=== PATIENT | female | born 1970 | race Asian ===

== ENCOUNTER 2016-07-09 23:00 | Emergency (ER) | payer OTHER ==
[~2016-07-09] VITALS: Ht 167.6 cm; Wt 52.2 kg
[2016-07-10 00:27] LABS: HIV-1 P24 AG Nonreactive (Nonreactive)
[2016-07-10 00:30] VITALS: BP 101/52
[2016-07-10 23:08] LABS: HEPATITIS C VIRUS AB <0.1 (0.0-0.9)
== END 2016-07-10 00:30 | disposition home or self-care (01) ==
LOC: ER 23:00
PROVIDERS: Nurse Practitioner
DX: S69.81XA Other specified injuries of right wrist, hand and finger(s), initial encounter (principal); Z77.21 Contact with and (suspected) exposure to potentially hazardous body fluids; W26.8XXA Contact with other sharp object(s), not elsewhere classified, initial encounter; Y93.89 Activity, other specified; Y92.89 Other specified places as the place of occurrence of the external cause; Y99.8 Other external cause status